=== PATIENT | male | born 1960 | race Hispanic/Latino ===

== ENCOUNTER → 2017-09-09 | Outpatient (CLI) | payer MEDICARE, OTHER ==
[~2017-09-09] MED LIST: LEVA1TAB2 PO; ZANT300T PO; ZANTTAB PO
--- NOTE | 2017-09-09 16:53 | REP ---
Chest two views HISTORY: Cough Comparison: None The lungs are clear. The heart is normal in size. The pulmonary vasculature is normal in appearance. The bony structure is intact. IMPRESSION: No acute disease. Signed by Lee Trimble MD 09/09/2017 04:45 P
--- NOTE | 2017-09-10 07:21 | REP ---
KUB ONE VIEW: HISTORY: Abdominal pain. A small amount of air is present in small and large intestine. There are no air fluid levels or dilated loops of intestine. There is no pneumoperitoneum. A mild amount of stool is present in the colon. IMPRESSION: Nonspecific bowel gas pattern. Signed by eLe Trimble MD 09/10/2017 08:11 A
== END ==
LOC: M LRY 16:06
PROVIDERS: ATTEND Nurse Practitioner Family
DX: R10.11 Right upper quadrant pain (principal); R05 Cough

== ENCOUNTER 2017-09-10 10:01 | Emergency (ER) | payer MEDICARE, OTHER ==
[~2017-09-10] VITALS: Ht 172.7 cm; Wt 81.5 kg
[2017-09-10] MEDS ORDERED: ZANTTAB PO (10:10)
[2017-09-10] MEDS ORDERED: MORPHINE 4 MG/ML 1ML SYRINGE IV ONE (11:45)
[2017-09-10] MEDS ORDERED: diphenhydrAMINE INJ 50MG/ML VIAL (J1200) IV ONE (11:45)
--- NOTE | 2017-09-10 12:07 | REP ---
CT CHEST WITHOUT CONTRAST: HISTORY: Cough. A calcified granuloma is present in the right lower lobe. The left lung is clear. There is no pleural effusion. There is no hilar mass. Several small lymph nodes less than 1 cm in size are present in the mediastinum. The heart is normal in size. Degenerative change is present in the thoracic spine. Calcifications are present in the liver and spleen. IMPRESSION: Findings consistent with old granulomatous disease. Signed by Lee Trimble MD 09/10/2017 12:24 P
[2017-09-10] MEDS ORDERED: LEVA1TAB2 PO (12:42)
[2017-09-10] MEDS ORDERED: ZANT300T PO (12:42)
[2017-09-10 12:57] VITALS: BP 122/89
--- NOTE | 2017-09-10 14:12 | REP ---
LIMITED ABDOMEN ULTRASOUND: HISTORY: Epigastric lump. The visualized liver is normal in echogenicity. There is no mass. There is no free fluid. The abdominal aorta measures 2.4 cm. IMPRESSION: Normal limited ultrasound. Signed by Lee Trimble MD 09/10/2017 02:20 P
== END 2017-09-10 15:10 | disposition home or self-care (01) ==
LOC: M ED 10:01
DX: J01.90 Acute sinusitis, unspecified (principal); Z72.0 Tobacco use